=== PATIENT | female | born 2000 | race Hispanic/Latino ===

== ENCOUNTER 2023-04-08 13:49 | Emergency (ER) | payer BC, OTHER ==
[~2023-04-08] VITALS: Ht 157.5 cm; Wt 57.6 kg
[2023-04-08 18:44] VITALS: BP 122/73
[2023-04-08] MEDS ORDERED: ALBU2SYR3 PO (19:38)
[2023-04-08] MEDS ORDERED: MONT-39 PO (19:38)
== END 2023-04-08 19:48 | disposition home or self-care (01) ==
LOC: EDH 13:49
DX: R06.02 Shortness of breath (principal); Z90.49 Acquired absence of other specified parts of digestive tract
CPT/HCPCS: 71045; 81025